=== PATIENT | female | born 1945 | race Caucasian/White ===

== ENCOUNTER 2023-01-02 08:04 | Outpatient (RCR) | payer MEDICARE, SELFPAY | END 2023-04-18 11:02 | disposition home or self-care (01) | LOC: HO.WCC 08:04 | PROVIDERS: Visit Provider Physician Assistant | DX: E11.622 Type 2 diabetes mellitus with other skin ulcer (principal); L97.822 Non-pressure chronic ulcer of other part of left lower leg with fat layer exposed; I87.2 Venous insufficiency (chronic) (peripheral); R60.0 Localized edema; I11.0 Hypertensive heart disease with heart failure; I50.40 Unspecified combined systolic (congestive) and diastolic (congestive) heart failure | CPT/HCPCS: 11042; 11043; 11045; 15271; 87070; 87073; 87205; 88304; 88305; 97597; 99212; Q4158 ==

== ENCOUNTER 2023-04-27 15:30 | Emergency (ER) | payer MEDICARE, SELFPAY ==
--- NOTE | 2023-04-27 15:34 | ED_ITS ---
HPI - General Adult General Chief complaint: General Medical Stated complaint: left calf red and swollen sent from wound care Related Data Home Medications Medication Instructions Recorded Confirmed acetaminophen 325 mg tablet 650 mg PO Q6H PRN Pain 04/28/23 04/28/23 (Tylenol) aspirin 81 mg tablet,delayed 81 mg PO DAILY 04/28/23 04/28/23 release atorvastatin 40 mg tablet 40 mg PO BEDTIME 04/28/23 04/28/23 fluticasone 100 mcg-salmeterol 50 1 ea inhalation BID 04/28/23 04/28/23 mcg/dose blistr powdr for inhalation (Advair Diskus) metformin 500 mg tablet 500 mg PO DAILY 04/28/23 04/28/23 metoprolol tartrate 25 mg tablet 25 mg PO TID 04/28/23 04/28/23 torsemide 20 mg tablet 40 mg PO DAILY@1400 04/28/23 04/28/23 tramadol 50 mg tablet 50 mg PO Q4H PRN Pain 04/28/23 04/28/23 Previous Rx's Medication Instructions Recorded doxycycline hyclate 100 mg tablet 100 mg PO BID 7 days #14 tabs 04/30/23 ondansetron 4 mg disintegrating 4 mg PO Q8H PRN nausea and 04/30/23 tablet vomiting #15 tabs Allergies Allergy/AdvReac Type Severity Reaction Status Date / Time adhesive tape Allergy Unknown Verified 04/27/23 15:35 Sulfa (Sulfonamide Allergy Unknown Verified 04/27/23 15:35 Antibiotics) [facility]LY [facility] Past Medical History Medical History (Updated 08/17/23 @ 02:01 by Behzad Yoo) Osteoarthritis Hypertension Borderline diabetes Stroke Ulcerative colitis Social History Social History Household Members: Family Housing: House Do you presently have visiting nurse or other home services: No Alcohol intake: never Patient Tobacco Use Status: Never used Tobacco service: No Physical Exam ED Vital Signs: BMI result Body Mass Index 46.7 Course Course Course Narrative: RME- 77-year-old female presents for evaluation of left leg redness. She has been treated for cellulitis with cephalexin pain sent here by wound care. She reports increasing swelling since last night. Though she admits she has only been on cephalexin for approximately 1 day. Plan for labs including blood cultures. Patient declined DVT ultrasound due to pain. Medical Decision Making Lab Data 04/27/23 16:04 04/27/23 16:05 Labs: Lab Results 04/27/23 04/27/23 04/27/23 Range/Units 16:04 16:05 16:07 WBC 6.6 (4.8-10.8) X10*3/uL RBC 3.96 L (4.20-5.50) X10*6/uL Hgb 10.8 L (12.0-16.0) g/dl Hct 33.8 L (37.0-47.0) % MCV 85.4 (80.0-98.0) fL MCH 27.3 (27.0-33.0) pg MCHC 32.0 (31.0-35.0) g/dl RDW 17.0 H (11.0-16.0) % Plt Count 175 (160-400) X10*3/uL MPV 11.1 (9.4-12.3) fL Immature Gran % (Auto) 0.2 (0.0-0.4) % Neut % (Auto) 57.6 (45-73) % Lymph % (Auto) 22.5 (20-40) % [place] % (Auto) 15.0 H (2-11) % Eos % (Auto) 4.1 H (0-4) % Baso % (Auto) 0.6 (0-2) % Lymph # (Auto) 1.5 (1.2-4.9) X10*3/uL [place] # (Auto) 1.0 (0.1-1.2) X10*3/uL Eos # (Auto) 0.3 (0.0-0.4) X10*3/uL Baso # (Auto) 0.0 (0.0-0.2) X10*3/uL Abs Immat Gran (auto) 0.01 (0.00-0.03) X10*3/uL Absolute Neuts (auto) 3.8 (2.0-8.3) x10*3/uL Absolute Nucleated RBC 0.000 (0.0-0.012) X10*3/uL Nucleated RBC % (auto) 0.0 (0.0-0.2) /100WBC Sodium 138 (135-145) mmol/L Potassium 3.9 (3.3-5.1) mmol/L Chloride 102 (96-108) mmol/L Carbon Dioxide 29 (22-29) mmol/L Anion Gap 11 L (12-20) BUN 15 (9-16) mg/dL Creatinine 0.69 (0.5-1.4) mg/dL Estim Creat Clear Calc 72.0 Estimated GFR > 60 Random Glucose 134 H (60-115) mg/dL Lactic Acid 1.6 (0.5-2.0) mmol/L Calcium 9.4 (8.4-10.2) mg/dL Total Bilirubin 0.3 (0.0-1.0) mg/dL AST 21 (5-31) U/L ALT 16 (0-31) U/L Alkaline Phosphatase 89 (39-117) U/L Total Protein 7.4 (6.5-8.0) g/dL Albumin 3.7 (3.5-5.0) g/dL Lipase 32 (8-78) U/L Discharge Plan Discharge Clinical Impression: Left leg pain Patient Disposition: Elopement Prescriptions: No Action atorvastatin 40 mg tablet 40 mg PO BEDTIME metformin 500 mg tablet 500 mg PO DAILY Rx Instructions: TAKE WITH FOOD torsemide 20 mg tablet 40 mg PO DAILY@1400 tramadol 50 mg tablet 50 mg PO Q4H PRN (Reason: Pain) fluticasone propion-salmeterol [Advair Diskus] 100-50 mcg/dose blister with device 1 ea inhalation BID metoprolol tartrate 25 mg tablet 25 mg PO TID acetaminophen [Tylenol] 325 mg Tablet 650 mg PO Q6H PRN (Reason: Pain) aspirin 81 mg Tablet,Delayed Release (Dr/Ec) 81 mg PO DAILY doxycycline hyclate 100 mg tablet 100 mg PO BID 7 Days Qty: 14 0RF ondansetron 4 mg tablet,disintegrating 4 mg PO Q8H PRN (Reason: nausea and vomiting) Qty: 15 0RF Discharge Date/Time: 04/27/23 18:41
[2023-04-27 15:38] VITALS: BP 128/71; PULSE 67; RESP 19; TEMP 36.6; O2SAT 98; BMI 46.7
[2023-04-27 16:17] LABS: MANUAL DIFF FLAG NO
[2023-04-27 16:21] LABS: Basophils Percent Auto 0.6 % (0-2); Eosinophils Absolute Auto 0.3 X10*3/uL (0.0-0.4); Eosinophils Percent Auto 4.1 % (0-4); Hematocrit 33.8 % (37.0-47.0); Hemoglobin 10.8 g/dl (12.0-16.0); Imm Gran Abs Auto 0.01 X10*3/uL (0.00-0.03); Imm Gran Pct Auto 0.2 % (0.0-0.4); Lymphocytes Absolute Auto 1.5 X10*3/uL (1.2-4.9); Lymphocytes Percent Auto 22.5 % (20-40); Mean Corpuscular Hemoglobin 27.3 pg (27.0-33.0); Mean Corpuscular Volume 85.4 fL (80.0-98.0); Mean Platelet Volume 11.1 fL (9.4-12.3); Neutrophils Absolute Auto 3.8 x10*3/uL (2.0-8.3); Neutrophils Percent Auto 57.6 % (45-73); Platelet Count 175 X10*3/uL (160-400); Red Blood Count 3.96 X10*6/uL (4.20-5.50); White Blood Count 6.6 X10*3/uL (4.8-10.8)
[2023-04-27 16:33] LABS: Lactic Acid 1.6 mmol/L (0.5-2.0)
[2023-04-27 16:37] LABS: Alanine Aminotransferase 16 U/L (0-31); Albumin Level 3.7 g/dL (3.5-5.0); Alkaline Phosphatase 89 U/L (39-117); Anion Gap 11 (12-20); Aspartate Amino Transferase 21 U/L (5-31); Bilirubin Total 0.3 mg/dL (0.0-1.0); Blood Urea Nitrogen 15 mg/dL (9-16); Calcium 9.4 mg/dL (8.4-10.2); Carbon Dioxide 29 mmol/L (22-29); Chloride 102 mmol/L (96-108); Estimated Glomerular Filt Rate > 60; Glucose Random 134 mg/dL (60-115); Lipase 32 U/L (8-78); Potassium 3.9 mmol/L (3.3-5.1); Sodium 138 mmol/L (135-145); Total Protein 7.4 g/dL (6.5-8.0)
== END 2023-04-27 18:41 | disposition left against medical advice (07) ==
PROVIDERS: Physician Assistant; Emergency Provider Emergency Medicine; PCP Internal Medicine
DX: M79.605 Pain in left leg (principal); L03.116 Cellulitis of left lower limb
CPT/HCPCS: 36415; 80053; 83605; 83690; 85025; 87040; 99281; 99283

== ENCOUNTER 2023-04-28 08:53 | Inpatient (IN) | payer MEDICARE, SELFPAY ==
--- NOTE | ~2023-04-28 | XR_ITS ---
EXAMINATION: XR CHEST CLINICAL INFORMATION: Shortness of breath COMPARISON: None available. TECHNIQUE: Frontal view of the chest was obtained. FINDINGS: The cardiac silhouette is slightly enlarged. Hilar and mediastinal contours are unremarkable. The lungs are clear. No pleural effusion or pneumothorax. Degenerative changes of the spine and right shoulder. Left shoulder prosthesis. XR/XR chest 1V IMPRESSION: Enlarged cardiac silhouette.
--- NOTE | ~2023-04-28 | US_ITS ---
EXAMINATION: US VENOUS ULTRASOUND WITH DOPPLER LOWER EXTREMITY, LEFT CLINICAL INFORMATION: Swelling COMPARISON: None available. TECHNIQUE: Ultrasound of the deep veins is performed from the hip to the calf with compression sonography and color and pulse Doppler assessment. Spectral analysis with color-flow imaging is performed. FINDINGS: There is normal venous compression and respiratory variation and augmented flow. The visualized common femoral vein, superficial femoral vein, profunda femoral vein, popliteal vein, and the peroneal veins shows no evidence of deep venous thrombosis. Posterior tibial veins not well visualized. There is no significant popliteal fossa cyst. If the patient's symptoms persist, followup ultrasound in 5 days 7 days might be of value to exclude proximal propagation from a non-visualized calf vein. US/US venous duplex LE LT IMPRESSION: No DVT demonstrated in the left lower extremity. Posterior tibial veins not well visualized.
--- NOTE | 2023-04-28 09:13 | ED.GENADULT ---
HPI - General Adult General Chief complaint: Wound/Laceration Stated complaint: Sent For IV Antibiotics Time Seen by Provider: 04/28/23 09:06 Source: patient Mode of arrival: ambulatory Limitations: no limitations History of Present Illness HPI narrative: 77-year-old female presents for evaluation of left leg redness.? Patient reports increasing redness, swelling to the left leg.? She is currently being treated for cellulitis by wound care with oral Keflex, she has taken 2-3 days . She was advised to come in for IV antibiotics if oral antibiotics did not suffice. Patient reports she was here yesterday had labs done, however they tried to do an ultrasound and she refused secondary to pain. Patient denies fevers, chills, numbness, tingling, headache, vision changes, dizziness, chest pain and shortness of breath. Related Data Allergies Allergy/AdvReac Type Severity Reaction Status Date / Time adhesive tape Allergy Unknown Verified 04/27/23 15:35 Sulfa (Sulfonamide Allergy Unknown Verified 04/27/23 15:35 Antibiotics) Review of Systems Review of Systems: Constitutional : No Weight loss, No Fever, No Chills, No Fatigue, No Malaise ENT/Mouth : No sore throat, No Rhinorrhea Eyes: No Eye Pain, No Swelling, No Redness Cardiovascular : No Chest Pain, No SOB, No Dyspnea on Exertion, No Orthopnea, No Edema, No Palpitations Respiratory : No Cough, No Sputum, No Wheezing Gastrointestinal : No Nausea, No Vomiting, No Diarrhea, No Constipation, No abdominal Pain, No Hematochezia, No Melena Genitourinary : No Dysuria, No Urinary Frequency, No Hematuria, Musculoskeletal : + joint pain, No Myalgias, + Joint Swelling Skin : No Skin Lesions, No rash Neuro : No Weakness, No Numbness, No Dizziness, No Headache Psych : No Anxiety/Panic, No Depression All other systems reviewed and are negative Yes all other systems are reviewed and are negative [facility] Past Medical History Attestation statement: The following information was validated with the patient. Source: old records reviewed and nursing notes reviewed Social History Social History Alcohol intake: never Smoked in Last 30 Days: No Use of substances other than those prescribed or required for medical reasons: No Advance Directives: No Advance Directives Information Provided: No Physical Exam ED Vital Signs: Vital Signs - 24 hr 04/28/23 09:18 04/28/23 11:28 Temperature 97.5 F Pulse Rate 65 75 Respiratory Rate 18 18 Blood Pressure 183/59 H 119/59 L Pulse Oximetry 97 95 Oxygen Delivery Method Room Air Room Air BMI result Body Mass Index 46.7 vss Appearance: Alert.? Oriented X3.? No acute distress.? Head: Normocephalic, atraumatic, no step-offs or deformities Eyes: Pupils equal, round and reactive to light.? ENT: Pharynx normal.? Neck: Normal inspection.? Neck supple.? CVS: Normal heart rate and rhythm.? Pulses normal.? Respiratory: No respiratory distress.? Breath sounds normal.? Abdomen: Soft and nontender.? Skin: Skin warm and dry.? Normal skin color.? Normal skin turgor.? Extremities: 1+ pitting edema to b/l shins and 2+ pititng edema to b/l feet worse on the left.? No calf ttp. Global weakness +erythema and warmth to left lower extremity from the rsoe down to the toes. Normal sensation b/l. Normal cap refil to b/l LE. 2+ AT,PT,DP pulses equal and b/l Neuro: Oriented X 3.? No motor deficit.? No sensory deficit. CN 2-12 intact Course Reevaluation(s) Reevaluation #1: CBC within patient's baseline, normocytic anemia noted, this is chronic. ESR elevated 44. Chemistry with no acute findings requiring intervention. Elevated CRP. Patient's BNP also elevated 316, no previous values to compare with however no signs of acute CHF at this time, patient saturating well on room air. Will obtain chest x-ray however. Patient was given Zosyn for cellulitis, patient developed shortness of breath IV Benadryl given, patient became slightly confused after Benadryl, saturating well on room air. Will continue to monitor. Plan is for hospital admission for cellulitis that has failed p.o. antibiotic treatment. Time: 11:44 Medications Administered Discontinued Medications Generic Name Dose Route Start Last Admin Trade Name Freq PRN Reason Stop Dose Admin Diphenhydramine HCl 50 mg 04/28/23 10:58 04/28/23 11:09 Diphenhydramine Hcl 50 Mg/Ml Vial IVPUSH 08/25/23 10:59 50 mg ONCE ONE Administration Piperacillin Sod/Tazobactam 50 mls @ 100 mls/hr 04/28/23 09:35 04/28/23 11:04 Sod 3.375 gm/ Sodium Chloride IV 04/28/23 10:04 Infused ONCE ONE Infusion Morphine Sulfate 4 mg 04/28/23 09:35 04/28/23 10:18 Morphine Sulfate 4 Mg/Ml Cartridge IVPUSH 04/28/23 09:36 4 mg ONCE ONE Administration Protocol Medical Decision Making Medical Decision Making [facility] Narrative: 0926 69-year-old female presents with left leg redness and swelling worsening the past few days currently on oral antibiotics however not helping. Was seen yesterday however left. Physical exam significant for 1+ pitting edema to b/l shins and 2+ pititng edema to b/l feet worse on the left.? No calf ttp. Global weakness +erythema and warmth to left lower extremity from the rose down to the toes. Normal sensation b/l. Normal cap refil to b/l LE. 2+ AT,PT,DP pulses equal and b/l Concerns for cellulitis. Unlikely osteomyelitis, throat to [place], neurovascular compromise, DVT or arterial occlusion. Plan at this time labs, inflammatory markers, imaging. Differential Diagnosis Differential Diagnoses: The differential diagnosis associated with the presentation includes Concerns for cellulitis. Unlikely osteomyelitis, throat to [place], neurovascular compromise, DVT or arterial occlusion. Admission/Observation Consideration of admission/observation: Escalation of care including admission/observation considered Likely has failed p.o. antibiotic Lab Data [facility] Lab Attestation statement: I reviewed the patient's lab results. 04/28/23 10:08 04/28/23 10:08 Labs: Lab Results 04/28/23 04/28/23 04/28/23 Range/Units 09:31 10:08 10:08 WBC 6.2 (4.8-10.8) X10*3/uL RBC 4.07 L (4.20-5.50) X10*6/uL Hgb 10.9 L (12.0-16.0) g/dl Hct 34.4 L (37.0-47.0) % MCV 84.5 (80.0-98.0) fL MCH 26.8 L (27.0-33.0) pg MCHC 31.7 (31.0-35.0) g/dl RDW 16.9 H (11.0-16.0) % Plt Count 216 (160-400) X10*3/uL MPV 10.8 (9.4-12.3) fL Immature Gran % (Auto) 0.2 (0.0-0.4) % Neut % (Auto) 57.1 (45-73) % Lymph % (Auto) 22.9 (20-40) % [place] % (Auto) 14.1 H (2-11) % Eos % (Auto) 5.2 H (0-4) % Baso % (Auto) 0.5 (0-2) % Lymph # (Auto) 1.4 (1.2-4.9) X10*3/uL [place] # (Auto) 0.9 (0.1-1.2) X10*3/uL Eos # (Auto) 0.3 (0.0-0.4) X10*3/uL Baso # (Auto) 0.0 (0.0-0.2) X10*3/uL Abs Immat Gran (auto) 0.01 (0.00-0.03) X10*3/uL Absolute Neuts (auto) 3.5 (2.0-8.3) x10*3/uL Absolute Nucleated RBC 0.000 (0.0-0.012) X10*3/uL Nucleated RBC % (auto) 0.0 (0.0-0.2) /100WBC ESR 44 H (0-20) MM/HR Sodium (135-145) mmol/L Potassium (3.3-5.1) mmol/L Chloride (96-108) mmol/L Carbon Dioxide (22-29) mmol/L Anion Gap (12-20) BUN (9-16) mg/dL Creatinine (0.5-1.4) mg/dL Estim Creat Clear Calc Estimated GFR Random Glucose (60-115) mg/dL Lactic Acid (0.5-2.0) mmol/L Calcium (8.4-10.2) mg/dL Total Bilirubin (0.0-1.0) mg/dL AST (5-31) U/L ALT (0-31) U/L Alkaline Phosphatase (39-117) U/L C-Reactive Protein (< or = 0.50) mg/dL B-Natriuretic Peptide (<100) pg/mL Total Protein (6.5-8.0) g/dL Albumin (3.5-5.0) g/dL Urine Color Yellow Urine Appearance Clear Urine pH 6.0 (5.0-9.0) Ur Specific [place] <= 1.005 (1.005-1.025) Urine Protein Negative (Neg-Trace) mg/dL Urine Glucose (UA) Negative (Negative) mg/dL Urine Ketones Negative (Negative) mg/dL Urine Blood Small (1+) H (Negative) Urine Nitrite Negative (Negative) Ur Leukocyte Esterase Trace H (Negative) Urine RBC 3-5 H (0-2) /HPF Urine WBC 0-5 (0-5) /HPF Ur Squamous Epith Cells 0-2 (0-2) /HPF Urine Bacteria None Seen (None Seen) Hyaline Casts 0-2 (0-2) /LPF 04/28/23 04/28/23 04/28/23 Range/Units 10:08 10:08 10:08 WBC (4.8-10.8) X10*3/uL RBC (4.20-5.50) X10*6/uL Hgb (12.0-16.0) g/dl Hct (37.0-47.0) % MCV (80.0-98.0) fL MCH (27.0-33.0) pg MCHC (31.0-35.0) g/dl RDW (11.0-16.0) % Plt Count (160-400) X10*3/uL MPV (9.4-12.3) fL Immature Gran % (Auto) (0.0-0.4) % Neut % (Auto) (45-73) % Lymph % (Auto) (20-40) % [place] % (Auto) (2-11) % Eos % (Auto) (0-4) % Baso % (Auto) (0-2) % Lymph # (Auto) (1.2-4.9) X10*3/uL [place] # (Auto) (0.1-1.2) X10*3/uL Eos # (Auto) (0.0-0.4) X10*3/uL Baso # (Auto) (0.0-0.2) X10*3/uL Abs Immat Gran (auto) (0.00-0.03) X10*3/uL Absolute Neuts (auto) (2.0-8.3) x10*3/uL Absolute Nucleated RBC (0.0-0.012) X10*3/uL Nucleated RBC % (auto) (0.0-0.2) /100WBC ESR (0-20) MM/HR Sodium 138 (135-145) mmol/L Potassium 4.3 (3.3-5.1) mmol/L Chloride 102 (96-108) mmol/L Carbon Dioxide 30 H (22-29) mmol/L Anion Gap 10 L (12-20) BUN 12 (9-16) mg/dL Creatinine 0.70 (0.5-1.4) mg/dL Estim Creat Clear Calc 71.0 Estimated GFR > 60 Random Glucose 129 H (60-115) mg/dL Lactic Acid 1.0 (0.5-2.0) mmol/L Calcium 9.4 (8.4-10.2) mg/dL Total Bilirubin 0.3 (0.0-1.0) mg/dL AST 25 (5-31) U/L ALT 17 (0-31) U/L Alkaline Phosphatase 88 (39-117) U/L C-Reactive Protein 2.83 H (< or = 0.50) mg/dL B-Natriuretic Peptide 316 H (<100) pg/mL Total Protein 7.7 (6.5-8.0) g/dL Albumin 3.7 (3.5-5.0) g/dL Urine Color Urine Appearance Urine pH (5.0-9.0) Ur Specific [place] (1.005-1.025) Urine Protein (Neg-Trace) mg/dL Urine Glucose (UA) (Negative) mg/dL Urine Ketones (Negative) mg/dL Urine Blood (Negative) Urine Nitrite (Negative) Ur Leukocyte Esterase (Negative) Urine RBC (0-2) /HPF Urine WBC (0-5) /HPF Ur Squamous Epith Cells (0-2) /HPF Urine Bacteria (None Seen) Hyaline Casts (0-2) /LPF Independent Interpretation I performed an independent interpretation of an: Ultrasound (US/US venous duplex LE LT IMPRESSION: No DVT demonstrated in the left lower extremity. Posterior tibial veins not well visualized.) Radiology Impression Discussion of test interpretation with radiology: I have reviewed the radiologist's reading. Core Measures AMI core measures followed: Yes Measure exclusions: not indicated Critical Care Time Critical Care Time Critical Care Time: Yes Total Critical Care Time: 35 Attestation: I attest to this time spent taking care of the patient, obtaining history, physical, reviewing labs, imaging, speaking to my attending, speaking to specialist. Discharge Plan Discharge Clinical Impression: Cellulitis Patient Disposition: Admitted As Inpatient
[2023-04-28 09:18] VITALS: BP 183/59; PULSE 65; RESP 18; TEMP 36.4; O2SAT 97; BMI 46.7
[2023-04-28 10:04] LABS: Appearance Urine Clear; Color Urine Yellow; Glucose Urine UA Negative (Negative); Leukocyte Esterase Urine Trace (Negative); Nitrite Urine Negative (Negative); Specific Gravity - Urine <= 1.005 (1.005-1.025); UMIC TRIGGER UACC YES; Urine Blood Small (1+) (Negative); Urine Ketones Negative (Negative); Urine Protein Negative (Neg-Trace)
[2023-04-28 10:16] LABS: MANUAL DIFF FLAG NO
[2023-04-28 10:17] LABS: Basophils Percent Auto 0.5 % (0-2); Eosinophils Absolute Auto 0.3 X10*3/uL (0.0-0.4); Eosinophils Percent Auto 5.2 % (0-4); Hematocrit 34.4 % (37.0-47.0); Hemoglobin 10.9 g/dl (12.0-16.0); Imm Gran Abs Auto 0.01 X10*3/uL (0.00-0.03); Imm Gran Pct Auto 0.2 % (0.0-0.4); Lymphocytes Absolute Auto 1.4 X10*3/uL (1.2-4.9); Lymphocytes Percent Auto 22.9 % (20-40); Mean Corpuscular HGB Conc 31.7 g/dl (31.0-35.0); Mean Corpuscular Hemoglobin 26.8 pg (27.0-33.0); Mean Corpuscular Volume 84.5 fL (80.0-98.0); Mean Platelet Volume 10.8 fL (9.4-12.3); Monocytes Absolute Auto 0.9 X10*3/uL (0.1-1.2); Monocytes Percent Auto 14.1 % (2-11); Neutrophils Absolute Auto 3.5 x10*3/uL (2.0-8.3); Neutrophils Percent Auto 57.1 % (45-73); Platelet Count 216 X10*3/uL (160-400); Red Blood Count 4.07 X10*6/uL (4.20-5.50); Red Cell Distribution Width 16.9 % (11.0-16.0); White Blood Count 6.2 X10*3/uL (4.8-10.8)
[2023-04-28] MEDS: Morphine Sulfate 4 MG/ML CARTRIDGE IVPUSH (10:18)
[2023-04-28] MEDS: Piperacillin Sodium/Tazobactam 3.375 GM in 0.9 % Sodium Chloride 50 ML IV (10:19)
[2023-04-28 10:20] LABS: Bacteria Urine None Seen (None Seen); Hyaline Casts Urine 0-2 /LPF (0-2); Squamous Epithelial Cell Urine 0-2 /HPF (0-2); WBC Urine 0-5 /HPF (0-5)
[2023-04-28 10:40] LABS: B Type Natriuretic Peptide 316 pg/mL (<100)
[2023-04-28 10:44] LABS: Alanine Aminotransferase 17 U/L (0-31); Albumin Level 3.7 g/dL (3.5-5.0); Alkaline Phosphatase 88 U/L (39-117); Anion Gap 10 (12-20); Aspartate Amino Transferase 25 U/L (5-31); Bilirubin Total 0.3 mg/dL (0.0-1.0); Blood Urea Nitrogen 12 mg/dL (9-16); C Reactive Protein 2.83 mg/dL (< or = 0.50); Calcium 9.4 mg/dL (8.4-10.2); Carbon Dioxide 30 mmol/L (22-29); Chloride 102 mmol/L (96-108); Estimated Glomerular Filt Rate > 60; Glucose Random 129 mg/dL (60-115); Potassium 4.3 mmol/L (3.3-5.1); Sodium 138 mmol/L (135-145); Total Protein 7.7 g/dL (6.5-8.0)
[2023-04-28 10:59] LABS: Erythrocyte Sedimentation Rate 44 MM/HR (0-20)
[2023-04-28] MEDS: diphenhydrAMINE HCL 50 MG/ML VIAL IVPUSH (11:09)
--- NOTE | 2023-04-28 11:21 | PC.NURSE ---
pt medicated per NOV by this RN. pt reported some chest and abdominal pain afterward. Provider Amira notified. Benadryl ordered and administered. RN will assess
[2023-04-28 11:28] VITALS: BP 119/59; PULSE 75; RESP 18; O2SAT 95
--- NOTE | 2023-04-28 11:48 | P.HPHOSP_ITS ---
History of Present Illness Date of Service: 04/28/23 Attending physician on admission: Michael Hines Chief Complaint: Left leg redness This is a 77 year old female with chronic left leg wound who presents to the emergency department with increasing left lower extremity redness. [facility] November when she initially injured her left leg. Her chronic wound has been improving well and she was discharged from [facility] last week. However she began having erythema and swelling of her left lower extremity and scheduled a follow-up appointment earlier this week. She was started on Keflex. The following day she came to the emergency department due to worsening redness and swelling. She left before being seen. She return to the emergency department today and underwent left lower extremity ultrasound which was negative for DVT. She received dose of IV Zosyn for left lower extremity cellulitis however following the dose of antibiotics she report edly had an episode of shortness of breath without any associated wheezing or other symptoms. She received a dose of Benadryl with improvement in her symptoms. When I evaluated her she was somewhat confused likely due to benadryl and morphine administration and was unable to provide month which history. Her history was primarily obtained from her daughter over the phone. In the emergency department she was afebrile, lab work revealed no leukocytosis. She will be admitted for further management of left lower extremity cellulitis after failing outpatient management with oral Keflex Review of Systems Review of Systems: Yes all other systems are reviewed and are negative Constitutional: Constitutional: Denies chills and Denies fever(s) Cardiovascular: Cardiovascular: Denies chest pain Gastrointestinal: Gastrointestinal: Denies abdominal pain [facility] Medical History (Updated 04/28/23 @ 14:13 by DELIO Yung) Borderline diabetes Hypertension Osteoarthritis Stroke Ulcerative colitis Pertinent family history: reviewed, patient unable to recall any significant family history at this time Social History Household Members: Family Housing: House Do you presently have visiting nurse or other home services: No Alcohol intake: never Patient Tobacco Use Status: Never used Tobacco Smoked in Last 30 Days: No Use of substances other than those prescribed or required for medical reasons: No Have you been hit, kicked, punched, or otherwise hurt by someone within the past year? If so, by whom?: No Do you feel safe in your current relationship?: No Current Relationship Is there a partner from a previous relationship who is making you feel unsafe now?: No Are you made to feel afraid or neglected: No Advance Directives: No Advance Directives Information Provided: No Do you have thoughts of harming others: None Do you have a plan to hurt others: No Plan Recently lost weight without trying: No Patient : No : No Poor oral hygiene: No Meds Allergies Allergy/AdvReac Type Severity Reaction Status Date / Time adhesive tape Allergy Unknown Verified 04/27/23 15:35 Sulfa (Sulfonamide Allergy Unknown Verified 04/27/23 15:35 Antibiotics) Active Medications: Current Medications Acetaminophen (Acetaminophen 325 Mg Tablet) 650 mg PO Q6H PRN PRN Reason: Pain, Mild (Pain Scale 1-3) Dextrose (Dextrose 50 % 25 Gm/50 Ml Syringe) 25 gm IVPUSH Q15M PRN; Protocol PRN Reason: per Hypoglycemia Standing Ord. Docusate Sodium (Docusate Sodium 100 Mg Capsule) 100 mg PO DAILY PRN PRN Reason: Constipation Enoxaparin Sodium (Enoxaparin Sodium 40 Mg/0.4 Ml Syringe) 40 mg SUBCUT Q24H JENIFER Glucose (Glucose Gel 15 Gm Gel..Gram.) 15 gm PO Q15M PRN; Protocol PRN Reason: per Hypoglycemia Standing Ord. Insulin Human Lispro (Insulin Lispro 100 Unit/Ml 3 Ml Vial) 0 unit SUBCUT QIDACHS [facility]; Protocol Ondansetron HCl (Ondansetron Hcl 4 Mg/2 Ml Vial) 4 mg IVPUSH Q8H PRN PRN Reason: Nausea and Vomiting Pharmacy Consult (Consult Rx Vancomycin Dosing) 1 each MISCELLANE DAILY PRN PRN Reason: Consult order Sodium Chloride (0.9 % Sodium Chloride Flush 3 Ml Syringe) [facility] Medications Medication Instructions Recorded Confirmed Last Taken Type acetaminophen 325 mg tablet 650 mg PO Q6H PRN Pain 04/28/23 04/28/23 Unknown History (Tylenol) aspirin 81 mg tablet,delayed 81 mg PO DAILY 04/28/23 04/28/23 04/28/23 09:00 History release atorvastatin 40 mg tablet 40 mg PO BEDTIME 04/28/23 04/28/23 04/27/23 History cephalexin 500 mg capsule 500 mg PO QID 04/28/23 04/28/23 04/28/23 09:00 History fluticasone 100 mcg-salmeterol 50 1 ea inhalation BID 04/28/23 04/28/23 04/28/23 09:00 History mcg/dose blistr powdr for inhalation (Advair Diskus) metformin 500 mg tablet 500 mg PO DAILY 04/28/23 04/28/23 04/28/23 09:00 History metoprolol tartrate 25 mg tablet 25 mg PO TID 04/28/23 04/28/23 04/28/23 09:00 History torsemide 20 mg tablet 40 mg PO DAILY@1400 04/28/23 04/28/23 04/27/23 History tramadol 50 mg tablet 50 mg PO Q4H PRN Pain 04/28/23 04/28/23 Unknown History Physical Exam Vital Signs and Narrative: Vital Signs: Last Vital Signs Temp 97.5 F 04/28/23 09:18 Pulse 75 04/28/23 11:28 Resp 18 04/28/23 11:28 BP 119/59 L 04/28/23 11:28 Pulse Ox 95 04/28/23 11:28 O2 Del Method Room Air 04/28/23 11:28 BMI result Body Mass Index 46.7 Const: Other: confused General: comfortable, no acute distress, alert and awake Nutritional Appearance: obese Orientation/consciousness: oriented to person and oriented to place Resp: Effort & Inspection: normal respiratory effort, able to speak in complete sentences, no respiratory distress and no use of accessory muscles Cardio: Rate: regular rate Heart sounds: S1 normal heart sound present and S2 normal heart sound present GI: Inspection: No distended Palpation (GI): Soft to palpation and nont anastasia Skin: Other: left lower extremity with chronic wound, shallow ulceration without drainage LLE with warmth, erythema, tenderness no abscess, no drainage Neuro: Other: grossly nonfocal General: oriented to person and oriented to place Results Labs 04/28/23 10:08 04/28/23 10:08 Labs: Laboratory Results - last 24 hr 04/28/23 04/28/23 04/28/23 09:31 10:08 10:08 MCV 84.5 MCH 26.8 L MCHC 31.7 RDW 16.9 H Plt Count 216 MPV 10.8 Immature Gran % (Auto) 0.2 Neut % (Auto) 57.1 Lymph % (Auto) 22.9 [place] % (Auto) 14.1 H Eos % (Auto) 5.2 H Baso % (Auto) 0.5 Lymph # (Auto) 1.4 [place] # (Auto) 0.9 Eos # (Auto) 0.3 Baso # (Auto) 0.0 Abs Immat Gran (auto) 0.01 Absolute Neuts (auto) 3.5 Absolute Nucleated RBC 0.000 Nucleated RBC % (auto) 0.0 ESR 44 H Anion Gap Estim Creat Clear Calc Estimated GFR Random Glucose Lactic Acid Calcium Total Bilirubin AST ALT Alkaline Phosphatase C-Reactive Protein B-Natriuretic Peptide Total Protein Albumin Urine Color Yellow Urine Appearance Clear Urine pH 6.0 Ur Specific [place] <= 1.005 Urine Protein Negative Urine Glucose (UA) Negative Urine Ketones Negative Urine Blood Small (1+) H Urine Nitrite Negative Ur Leukocyte Esterase Trace H Urine RBC 3-5 H Urine WBC 0-5 Ur Squamous Epith Cells 0-2 Urine Bacteria None Seen Hyaline Casts 0-2 04/28/23 04/28/23 04/28/23 10:08 10:08 10:08 MCV MCH MCHC RDW Plt Count MPV Immature Gran % (Auto) Neut % (Auto) Lymph % (Auto) [place] % (Auto) Eos % (Auto) Baso % (Auto) Lymph # (Auto) [place] # (Auto) Eos # (Auto) Baso # (Auto) Abs Immat Gran (auto) Absolute Neuts (auto) Absolute Nucleated RBC Nucleated RBC % (auto) ESR Anion Gap 10 L Estim Creat Clear Calc 71.0 Estimated GFR > 60 Random Glucose 129 H Lactic Acid 1.0 Calcium 9.4 Total Bilirubin 0.3 AST 25 ALT 17 Alkaline Phosphatase 88 C-Reactive Protein 2.83 H B-Natriuretic Peptide 316 H Total Protein 7.7 Albumin 3.7 Urine Color Urine Appearance Urine pH Ur Specific [place] Urine Protein Urine Glucose (UA) Urine Ketones Urine Blood Urine Nitrite Ur Leukocyte Esterase Urine RBC Urine WBC Ur Squamous Epith Cells Urine Bacteria Hyaline Casts Imaging Radiologist's Impressions: Impressions Venous Duplex 04/28/23 11:16 IMPRESSION: No DVT demonstrated in the left lower extremity. Posterior tibial veins not well visualized. Assessment and Plan (1) Cellulitis: Status: Acute Plan This is a 77-year-old female with history of ulcerative colitis, stroke borderline diabetes, hypertension chronic left lower extremity wound being followed by the [facility] who presented to the emergency department with worsening of left lower extremity erythema and swelling after being started on Keflex 04/26 LLE cellulitis started on keflex as oupatient, but erythema and swelling continues to worsen no evidence of sepsis US negative for DVT erythema from top of foot to above middle of rose -IV vanco -follow blood cultures chronic LLE wound appears to be healing well, continue local wound care toxic encephalopathy r/t medications - morphine and benadryl, should improve as these wear off DM states she is borderline diabetic - will check hba1c will hold metformin follow POCs, ada diet SSI h/o CVA continue aspirin, statin HTN continue BB, torsemide dvt ppx - lovenox code status - full HCP - daughter attending - dr. hines Given extent of left lower extremity cellulitis and failing outpatient oral antibiotics patient will likely require 2 midnight stay in the hospital for IV antibiotics to prevent progression Time Spent With Patient Time: Total time managing care of this patient today ____ minutes. Quality Stroke Does the patient have a stroke diagnosis?: No VTE Prior VTE?: No VTE Risk Level:: Medical - moderate - high VTE Device Contraindication: Treatment Not Indicated VTE Drug Contraindication: N/A - Med Ordered
--- NOTE | 2023-04-28 12:21 | PHA.MEDREC ---
Pharmacy Consult ? Medication Reconciliation Pharmacy has completed the medication reconciliation. Spoke to patient to confirm meds. Patient had RX bottles with them.
[2023-04-28] MEDS: Enoxaparin Sodium 40 MG/0.4 ML SYRINGE SUBCUT (12:45)
[2023-04-28] MEDS: vancomycin/NS 2,000 MG/500 ML PLAST..BAG 250 MG IV (12:45)
[2023-04-28 13:26] VITALS: BMI 48.8
--- NOTE | 2023-04-28 13:45 | PHA.PROG ---
Admission Date/Time: April 28, 2023 11:33 Indication: SKIN Weight in k.7 kg Serum Creatinine - Last 168 Hours 04/28/23 10:08 Creatinine 0.70 Estimated CrCl and GFR - Last 168 Hours 04/28/23 10:08 Estim Creat Clear Calc 71.0 Estimated GFR > 60 Vancomycin Loading Dose: 2000 Current Vancomycin Dosing Regimen: 1250 Q 24 Vancomycin Monitoring using AUC goal of 400 - 600 range with trough as surrogate marker: 468 Date and Time for next Vancomycin Level to be drawn: 05/01 @ 1100 Pharmacist Comments on Vancomycin Plan: Vancomycin dosing will take advantage of [employer] as a clinical decision support tool that uses Bayesian modeling to calculate individual patient's pharmacokinetic parameters and forecast the patient's drug concentration time course with the target goal AUC 24 range of 400 - 600 mg/L/hr.
[2023-04-28 13:47] VITALS: BP 114/69; PULSE 70; RESP 17; TEMP 36.4; O2SAT 96
[2023-04-28 15:36] VITALS: BP 141/62; PULSE 60; RESP 20; TEMP 36; O2SAT 95
[2023-04-28] MEDS: Metoprolol Tartrate 25 MG TABLET PO ×2 (16:06→21:45)
[2023-04-28] MEDS: Acetaminophen 325 MG TABLET 650 MG PO ×2 (16:09→21:46)
[2023-04-28 16:12] LABS: Glucose, Whole Blood 92 mg/dL (60-115)
--- NOTE | 2023-04-28 16:19 | MHC.CM.PN ---
PT REPORTS SHE LIVES WITH HER DAUGHTER, SON-IN-LAW, AND HER GREAT GRANDSON WHO THEY HAVE ADOPTED SHE REPORTS SHE IS INDEPENDENT WITH ALL CARE AND HAS NO SERVICES PT REPORTS SHE HAS A WALKER, WHICH SHE CAME IN WITH, BUT IS UNSURE WHERE IT IS SHE SAYS SHE HAS A HCP THAT SHE THINKS IS IN HER BAG IN HER ROOM, SHE WILL LOOK FOR A COPY PCP: JARON DELUCA IMM DELIVERED DCP: HOME NO SERVICES VIA FAMILY TRANSPORT
[2023-04-28 19:16] VITALS: BP 103/58; PULSE 60; RESP 17; TEMP 36.4; O2SAT 92
[2023-04-28 20:43] LABS: Glucose, Whole Blood 121 mg/dL (60-115)
[2023-04-28] MEDS: Atorvastatin Calcium 40 MG TABLET PO (21:45)
[2023-04-28] MEDS: 0.9 % Sodium Chloride Flush 3 ML SYRINGE IVFLUSH (23:56)
[2023-04-29 03:47] VITALS: BP 132/60; PULSE 67; RESP 16; TEMP 36.1; O2SAT 93
[2023-04-29 06:11] LABS: Hematocrit 33.5 % (37.0-47.0); Hemoglobin 10.5 g/dl (12.0-16.0); Mean Corpuscular HGB Conc 31.3 g/dl (31.0-35.0); Mean Corpuscular Hemoglobin 26.9 pg (27.0-33.0); Mean Corpuscular Volume 85.7 fL (80.0-98.0); Mean Platelet Volume 11.2 fL (9.4-12.3); Platelet Count 212 X10*3/uL (160-400); Red Blood Count 3.91 X10*6/uL (4.20-5.50); Red Cell Distribution Width 17.4 % (11.0-16.0); White Blood Count 4.3 X10*3/uL (4.8-10.8)
[2023-04-29 06:24] LABS: Estimated Average Glucose 131 mg/dL; Hemoglobin A1c % 6.2 % (<6.0)
[2023-04-29 06:26] LABS: Anion Gap 11 (12-20); Blood Urea Nitrogen 11 mg/dL (9-16); Calcium 9.1 mg/dL (8.4-10.2); Carbon Dioxide 29 mmol/L (22-29); Chloride 104 mmol/L (96-108); Creatinine Clr Calc Pharmacy 77.4; Estimated Glomerular Filt Rate > 60; Glucose Random 109 mg/dL (60-115); Potassium 4.3 mmol/L (3.3-5.1); Sodium 140 mmol/L (135-145)
[2023-04-29 07:19] VITALS: BP 133/63; PULSE 65; RESP 16; TEMP 36.2; O2SAT 95
[2023-04-29 07:39] LABS: Glucose, Whole Blood 119 mg/dL (60-115)
[2023-04-29] MEDS: Fluticasone/Vilanterol 100/25 BLST.W.DEV 1 PUFF INHALE (08:18)
[2023-04-29 08:21] VITALS: PULSE 69; RESP 16; O2SAT 92
[2023-04-29] MEDS: Aspirin Enteric Coated 81 MG TABLET.DR PO (08:57)
[2023-04-29] MEDS: 0.9 % Sodium Chloride Flush 3 ML SYRINGE IVFLUSH ×3 (08:57→23:23)
[2023-04-29] MEDS: Metoprolol Tartrate 25 MG TABLET PO ×3 (08:57→20:02)
[2023-04-29] MEDS: traMADoL HCL 50 MG TABLET PO ×2 (09:11→20:10)
[2023-04-29 11:37] LABS: Glucose, Whole Blood 196 mg/dL (60-115)
[2023-04-29] MEDS: Enoxaparin Sodium 40 MG/0.4 ML SYRINGE SUBCUT (11:52)
[2023-04-29] MEDS: Insulin Lispro 100 UNIT/ML 3 ML VIAL SUBCUT ×2 (11:55→20:09)
--- NOTE | 2023-04-29 12:05 | P.PNIM_ITS ---
Subjective Subjective Date of Service: 04/29/23 Interval History: seen and examined this morning follow up for cellulitis no confusion this morning leg feeling a little better, no fever or chills Review of Systems Review of Systems: Yes all other systems are reviewed and are negative Constitutional Constitutional: Denies chills and Denies fever(s) ENT Ears, Nose, Mouth, and Throat: Denies dizziness Cardiovascular Cardiovascular: Denies chest pain, Denies palpitations and Denies dyspnea Respiratory Respiratory: Denies cough and Denies dyspnea Gastrointestinal Gastrointestinal: Denies abdominal pain Neurologic Neurologic: Denies dizziness Endocrine Endocrine: Denies palpitations Physical Exam Vital Signs: Vital Signs: Last Vital Signs Temp 97.2 F 04/29/23 07:19 Pulse 69 04/29/23 08:21 Resp 16 04/29/23 08:21 BP 133/63 04/29/23 07:19 Pulse Ox 95 04/29/23 07:19 O2 Del Method Room Air 04/29/23 07:19 BMI result Body Mass Index 48.8 Const: General: cooperative, comfortable, no acute distress, alert and awake Nutritional Appearance: obese Orientation/consciousness: patient oriented x3 Resp: Effort & Inspection: normal respiratory effort, able to speak in complete sentences, no respiratory distress and no use of accessory muscles Cardio: Rate: regular rate Heart sounds: S1 normal heart sound present and S2 normal heart sound present GI: Inspection: No distended Palpation (GI): Soft to palpation and nontender Skin: Other: LLE with less erythema especially on foot, swelling starting to improve Neuro: Other: grossly nonfocal General: patient oriented x3 Objective Data Active Medications Acetaminophen (Acetaminophen 325 Mg Tablet) 650 mg PO Q6H PRN PRN Reason: Pain, Mild (Pain Scale 1-3) Last Admin: 04/28/23 21:46 Dose: 650 mg Documented By: ROXANNE Aspirin (Aspirin Enteric Coated 81 Mg Tablet.) 81 mg PO DAILY [facility] Last Admin: 04/29/23 08:57 Dose: 81 mg Documented By: VENANCIO Atorvastatin Calcium (Atorvastatin Calcium 40 Mg Tablet) 40 mg PO BEDTIME [facility] Last Admin: 04/28/23 21:45 Dose: 40 mg Documented By: ROXANNE Dextrose (Dextrose 50 % 25 Gm/50 Ml Syringe) 25 gm IVPUSH Q15M PRN; Protocol PRN Reason: per Hypoglycemia Standing Ord. Docusate Sodium (Docusate Sodium 100 Mg Capsule) 100 mg PO DAILY PRN PRN Reason: Constipation Enoxaparin Sodium (Enoxaparin Sodium 40 Mg/0.4 Ml Syringe) 40 mg SUBCUT Q24H [facility] Last Admin: 04/29/23 11:52 Dose: 40 mg Documented By: VENANCIO Fluticasone/Vilanterol (Fluticasone/Vilanterol 100/25 Blst.W.Dev) 1 puff INHALE RDAILY [facility] Last Admin: 04/29/23 08:18 Dose: 1 puff Documented By: ANTONIA Glucose (Glucose Gel 15 Gm Gel..Gram.) 15 gm PO Q15M PRN; Protocol PRN Reason: per Hypoglycemia Standing Ord. Vancomycin HCl 1,250 mg/ (Sodium Chloride) 250 mls @ 166.667 mls/hr IV Q24H [facility] Insulin Human Lispro (Insulin Lispro 100 Unit/Ml 3 Ml Vial) 0 unit SUBCUT QIDACHS [facility]; Protocol Last Admin: 04/29/23 11:55 Dose: 2 unit Documented By: VENANCIO Metoprolol Tartrate (Metoprolol Tartrate 25 Mg Tablet) 25 mg PO TID [facility]; Pro tocol Last Admin: 04/29/23 08:57 Dose: 25 mg Documented By: VENANCIO Ondansetron HCl (Ondansetron Hcl 4 Mg/2 Ml Vial) 4 mg IVPUSH Q8H PRN PRN Reason: Nausea and Vomiting Pharmacy Consult (Consult Rx Vancomycin Dosing) 1 each MISCELLANE DAILY PRN PRN Reason: Consult order Sodium Chloride (0.9 % Sodium Chloride Flush 3 Ml Syringe) 3 ml IVFLUSH QSHIFT [facility] Last Admin: 04/29/23 08:57 Dose: 3 ml Documented By: VENANCIO Torsemide (Torsemide 20 Mg Tablet) 40 mg PO DAILY@1400 [facility]; Protocol Tramadol HCl (Tramadol Hcl 50 Mg Tablet) 50 mg PO Q4H PRN PRN Reason: Pain, Moderate(Pain Scale 4-6) Last Admin: 04/29/23 09:11 Dose: 50 mg Documented By: VENANCIO Labs 04/29/23 05:23 04/29/23 05:23 Labs: Laboratory Results - last 24 hr 04/28/23 04/28/23 04/28/23 09:31 16:02 20:27 MCV MCH MCHC RDW Plt Count MPV Absolute Nucleated RBC Nucleated RBC % (auto) Anion Gap Estim Creat Clear Calc Estimated GFR POC Glucose 92 121 H Random Glucose Estimat Average Glucose Hemoglobin A1c % Calcium Urine Color Yellow Urine Appearance Clear Urine pH 6.0 Ur Specific [place] <= 1.005 Urine Protein Negative Urine Glucose (UA) Negative Urine Ketones Negative Urine Blood Small (1+) H Urine Nitrite Negative Ur Leukocyte Esterase Trace H Urine RBC 3-5 H Urine WBC 0-5 Ur Squamous Epith Cells 0-2 Urine Bacteria None Seen Hyaline Casts 0-2 04/29/23 04/29/23 04/29/23 05:23 05:23 05:23 MCV 85.7 MCH 26.9 L MCHC 31.3 RDW 17.4 H Plt Count 212 MPV 11.2 Absolute Nucleated RBC 0.000 Nucleated RBC % (auto) 0.0 Anion Gap 11 L Estim Creat Clear Calc 77.4 Estimated GFR > 60 POC Glucose Random Glucose 109 Estimat Average Glucose 131 Hemoglobin A1c % 6.2 H Calcium 9.1 Urine Color Urine Appearance Urine pH Ur Specific [place] Urine Protein Urine Glucose (UA) Urine Ketones Urine Blood Urine Nitrite Ur Leukocyte Esterase Urine RBC Urine WBC Ur Squamous Epith Cells Urine Bacteria Hyaline Casts 04/29/23 04/29/23 07:23 11:23 MCV MCH MCHC RDW Plt Count MPV Absolute Nucleated RBC Nucleated RBC % (auto) Anion Gap Estim Creat Clear Calc Estimated GFR POC Glucose 119 H 196 H Random Glucose Estimat Average Glucose Hemoglobin A1c % Calcium Urine Color Urine Appearance Urine pH Ur Specific [place] Urine Protein Urine Glucose (UA) Urine Ketones Urine Blood Urine Nitrite Ur Leukocyte Esterase Urine RBC Urine WBC Ur Squamous Epith Cells Urine Bacteria Hyaline Casts Assessment and Plan (1) Cellulitis: Status: Acute Plan This is a 77-year-old female with history of ulcerative colitis, stroke borderline diabetes, hypertension chronic left lower extremity wound being followed by the [facility] who presented to the emergency department with worsening of left lower extremity erythema and swelling after being started on Keflex 04/26 LLE cellulitis started on keflex as oupatient, but erythema and swelling continues to worsen no evidence of sepsis US negative for DVT -continue IV vanco -blood cultures pending chronic LLE wound appears to be healing well, continue local wound care toxic encephalopathy r/t medications - morphine and benadryl. resolved DM hba1c 6.2 metformin on hold follow POCs, ada diet, SSI h/o CVA continue aspirin, statin HTN continue BB, torsemide Morbid obesity BMI 48.8 weight loss encouraged patient received a dose of zosyn in the ED followed by an episode of shortness of breath, but this was not described to be associated with any wheezing. improved after a dose of benadryl. dvt ppx - lovenox code status - full HCP - daughter attending - dr. Sargent Requires ongoing inpatient hospialization for IV antibiotics to prevent progression of cellulitis Time Spent With Patient Time: Total time managing care of this patient today ____ minutes. Quality Stroke Does the patient have a stroke diagnosis?: No VTE Prior VTE?: No VTE Risk Level:: Medical - moderate - high VTE Device Contraindication: Treatment Not Indicated VTE Drug Contraindication: N/A - Med Ordered
[2023-04-29] MEDS: Torsemide 20 MG TABLET 40 MG PO (14:33)
[2023-04-29 14:35] VITALS: BP 116/56; PULSE 72
[2023-04-29 14:55] VITALS: BP 115/59; PULSE 68; RESP 16; TEMP 36.8; O2SAT 94
[2023-04-29 16:42] LABS: Glucose, Whole Blood 117 mg/dL (60-115)
[2023-04-29] MEDS: vancomycin HCL 1,250 MG in 0.9 % Sodium Chloride 250 ML 166.67 MG IV (16:47)
[2023-04-29 20:00] VITALS: BP 110/59; PULSE 68; RESP 17; TEMP 36.8
[2023-04-29] MEDS: Atorvastatin Calcium 40 MG TABLET PO (20:02)
[2023-04-29 20:18] LABS: Glucose, Whole Blood 152 mg/dL (60-115)
[2023-04-30] MEDS: Acetaminophen 325 MG TABLET 650 MG PO (02:05)
[2023-04-30] MEDS: traMADoL HCL 50 MG TABLET PO ×2 (02:05→06:05)
[2023-04-30 03:37] VITALS: BP 130/63; PULSE 80; RESP 16; TEMP 36; O2SAT 93
[2023-04-30 06:08] LABS: Creatinine Clr Calc Pharmacy 77.4; Estimated Glomerular Filt Rate > 60
[2023-04-30 07:34] VITALS: BP 143/84; PULSE 77; RESP 18; TEMP 36.8; O2SAT 94
[2023-04-30] MEDS: Fluticasone/Vilanterol 100/25 BLST.W.DEV 1 PUFF INHALE (07:37)
[2023-04-30 07:39] VITALS: PULSE 84; RESP 16; O2SAT 93
[2023-04-30 08:28] LABS: Glucose, Whole Blood 168 mg/dL (60-115)
[2023-04-30] MEDS: Metoprolol Tartrate 25 MG TABLET PO (08:45)
[2023-04-30] MEDS: Insulin Lispro 100 UNIT/ML 3 ML VIAL SUBCUT (08:46)
[2023-04-30] MEDS: Aspirin Enteric Coated 81 MG TABLET.DR PO (08:46)
[2023-04-30] MEDS: 0.9 % Sodium Chloride Flush 3 ML SYRINGE IVFLUSH (08:50)
--- NOTE | 2023-04-30 09:37 | P.DS_ITS ---
DS: Providers Provider Date of Service: 04/30/23 Date of admission: 04/28/23 11:33 Date of discharge: 04/30/23 Primary care physician: David Christianson MD Attending physician on discharge: Andrews Snyder Discharging clinician: Aleisha Velasquez DS: Diagnosis Discharge Diagnosis (1) Cellulitis: Status: Acute DS: Summary Hospital Course Hospital Course: From H&P on day of admission This is a 77 year old female with chronic left leg wound who presents to the emergency department with increasing left lower extremity redness.? [facility] November when she initially injured her left leg.? Her chronic wound has been improving well and she was discharged from Wound Care last week.? However she began having erythema and swelling of her left lower extremity and scheduled a follow-up appointment earlier this week.? She was started on Keflex.? The following day she came to the emergency department due to worsening redness and swelling.? She left before being seen.? She return to the emergency department today and underwent left lower extremity ultrasound which was negative for DVT.? She received dose of IV Zosyn for left lower extremity cellulitis however following the dose of antibiotics she reportedly had an episode of shortness of breath without any associated wheezing or other symptoms.? She received a dose of Benadryl with improvement in her symptoms.? When I evaluated her she was somewhat confused likely due to benadryl and morphine administration and was unable to provide month which history.? Her history was primarily obtained from her daughter over the phone.? In the emergency department she was afebrile, lab work revealed no leukocytosis.? She will be admitted for further management of left lower extremity cellulitis after failing outpatient management with oral Keflex Left leg cellulitis. US was negative for DVT. She was started on IV vancomycin, gradually erythema and edema began improving. She has remained afebrile. Blood c ultures have remained negative to date. She is stable for return home to complete course of doxycycline. Recommend keeping leg elevated. Time Spent with Patient Time attestation: Total time managing care of this patient today ____ minutes. Discharge coordination time: Greater than 30 minutes Quality: Safe Use of Opioids Does Pt have an Active Cancer Diagnosis on the Problem List?: No Quality: Stroke Does the patient have a stroke diagnosis?: No Physical Exam Vital Signs: Vital Signs: Last Vital Signs Temp 98.3 F 04/30/23 07:34 Pulse 84 04/30/23 07:39 Resp 16 04/30/23 07:39 BP 143/84 H 04/30/23 07:34 Pulse Ox 94 04/30/23 07:34 O2 Del Method Nasal Cannula 04/30/23 07:34 O2 Flow Rate 2 04/30/23 07:34 BMI result Body Mass Index 48.8 Const: General: cooperative, comfortable, no acute distress, alert and awake Nutritional Appearance: obese Orientation/consciousness: patient oriented x3 Resp: Effort & Inspection: normal respiratory effort, able to speak in complete sentences, no respiratory distress and no use of accessory muscles Cardio: Rate: regular rate Heart sounds: S1 normal heart sound present and S2 normal heart sound present GI: Inspection: No distended Palpation (GI): Soft to palpation and nontender Skin: Other: LLE with less erythema especially on foot, swelling starting to improve Neuro: Other: grossly nonfocal General: patient oriented x3 Extrem: Other: LLE with improving erythema and edema, receding from outlined area. less tender. chronic wound continues to look good. DS: Data Data Completed and Pending Labs on day of discharge: Laboratory Results - last 24 hr 04/29/23 04/29/23 04/29/23 11:23 16:38 20:07 Creatinine Estim Creat Clear Calc Estimated GFR POC Glucose 196 H 117 H 152 H 04/30/23 04/30/23 05:05 08:24 Creatinine 0.66 Estim Creat Clear Calc 77.4 Estimated GFR > 60 POC Glucose 168 H Preliminary micro results at discharge 04/28/23 10:08 Blood Culture - Preliminary Blood - Venous No growth after 24 hours. 04/28/23 10:08 Blood Culture - Preliminary Blood - Venous No growth after 24 hours. Discharge Plan Discharge Anticipated Discharge Date/Time: 04/30/23 09:34 Patient Disposition: Home, Self-Care Discharge Diagnosis: RLE cellulitis Referrals: David Christianson MD [Primary Care Provider] - 1 Week Discharge Medications: New doxycycline hyclate 100 mg tablet 100 mg PO BID 7 Days Qty: 14 0RF Continued atorvastatin 40 mg tablet 40 mg PO BEDTIME metformin 500 mg tablet 500 mg PO DAILY Rx Instructions: TAKE WITH FOOD torsemide 20 mg tablet 40 mg PO DAILY@1400 tramadol 50 mg tablet 50 mg PO Q4H PRN (Reason: Pain) fluticasone propion-salmeterol [Advair Diskus] 100-50 mcg/dose blister with device 1 ea inhalation BID metoprolol tartrate 25 mg tablet 25 mg PO TID acetaminophen [Tylenol] 325 mg Tablet 650 mg PO Q6H PRN (Reason: Pain) aspirin 81 mg Tablet,Delayed Release (Dr/Ec) 81 mg PO DAILY Discontinued cephalexin 500 mg capsule 500 mg PO QID Rx Instructions: END DATE: 05/01/23 Discharge Orders: Discharge Order (Routine); Ordered 04/30/23 Ordered By: Aleisha Velasquez Activity on Discharge: As tolerated Stand Alone Forms: Patient Portal Discharge page Care Plan Goals: see below Health Concerns: LLE cellulitis Plan of Treatment: stop taking cephalexin start taking doxycycline keep leg elevated call to schedule follow up with PCP to ensure resolution of infection recommend to follow diabetic diet for good control of blood sugar Assessment: see discharge summary
--- NOTE | 2023-04-30 10:04 | MHC.CM.PN ---
PT TO DC HOME TODAY WITH NO SERVICES VIA [facility]
[2023-04-30 11:27] LABS: Glucose, Whole Blood 106 mg/dL (60-115)
[2023-04-30] MEDS: Torsemide 20 MG TABLET 40 MG PO (11:58)
== END 2023-04-30 12:14 | disposition home or self-care (01) | DRG 602 ==
LOC: HO.ED 10:06 → HO.EDOVER 11:51 → HO.S3 12:04
PROVIDERS: Physician Assistant; Admitting Provider Physician Assistant Medical; Emergency Provider Emergency Medicine Emergency Medical Services; PCP Internal Medicine; Visit Provider Physician Assistant Medical
DX: L03.116 Cellulitis of left lower limb (principal); G92.8 Other toxic encephalopathy; Z68.42 Body mass index [BMI] 45.0-49.9, adult; L97.829 Non-pressure chronic ulcer of other part of left lower leg with unspecified severity; E66.01 Morbid (severe) obesity due to excess calories; I10 Essential (primary) hypertension; E11.9 Type 2 diabetes mellitus without complications; Z86.73 Personal history of transient ischemic attack (TIA), and cerebral infarction without residual deficits; Z79.82 Long term (current) use of aspirin; Z79.84 Long term (current) use of oral hypoglycemic drugs; Z79.899 Other long term (current) drug therapy
CPT/HCPCS: 36415; 71045; 80048; 80053; 81001; 81003; 82565; 82947; 83036; 83605; 83690; 83880; 85025; 85027; 85652; 86140; 87040; 93971; 94640; 99283; 99285; J1200; J1650; J2270; J2543; J3370; J3371

== ENCOUNTER → 2023-04-28 11:33 | Outpatient (BNV) | payer MEDICARE, SELFPAY | PROVIDERS: Admitting Provider Physician Assistant Medical; Emergency Provider Emergency Medicine Emergency Medical Services; PCP Internal Medicine; Visit Provider Physician Assistant Medical | DX: L03.116 Cellulitis of left lower limb (principal) | CPT/HCPCS: 99223; 99232; 99239 ==

== ENCOUNTER → 2024-06-07 12:12 | Outpatient (RCR) | payer MEDICARE, SELFPAY | END | disposition home or self-care (01) | LOC: HO.WCC 04-27 14:28 | PROVIDERS: PCP Internal Medicine; Visit Provider Surgery | DX: L03.116 Cellulitis of left lower limb (principal); I50.40 Unspecified combined systolic (congestive) and diastolic (congestive) heart failure; Z79.84 Long term (current) use of oral hypoglycemic drugs; Z79.2 Long term (current) use of antibiotics; Z79.82 Long term (current) use of aspirin; Z79.899 Other long term (current) drug therapy | CPT/HCPCS: 99213 ==